=== PATIENT | female | born 1975 | race Hispanic/Latino ===

== ENCOUNTER 2019-03-25 21:21 | Emergency (ER) | payer MEDICAID ==
[2019-03-25] MEDS ORDERED: FAMOTIDINE 20MG TAB 20 MG TAB ONE (22:10)
[2019-03-25] MEDS ORDERED: ONDANSETRON ODT 4 MG TAB ONE (22:11)
== END 2019-03-25 22:21 | disposition home or self-care (01) ==
LOC: EDH 21:21
DX: K21.9 Gastro-esophageal reflux disease without esophagitis (principal); E78.00 Pure hypercholesterolemia, unspecified

== ENCOUNTER 2020-12-15 14:14 | Emergency (ER) | payer MEDICAID, OTHER | END 2020-12-15 15:05 | disposition home or self-care (01) | LOC: EDH 14:14 | DX: B34.9 Viral infection, unspecified (principal); T50.B95A Adverse effect of other viral vaccines, initial encounter; Y92.89 Other specified places as the place of occurrence of the external cause | CPT/HCPCS: 71045 ==

== ENCOUNTER 2021-05-05 22:22 | Emergency (ER) | payer OTHER ==
[2021-05-05 22:27] VITALS: BP 168/73
[2021-05-05] MEDS ORDERED: ONDANSETRON ODT 4MG TAB SL ONE (23:00)
[2021-05-05] MEDS ORDERED: ALBUTEROL 0.083% 2.5 MG/3 ML INH IH ONE ×2 (23:00→23:02)
[2021-05-05] MEDS ORDERED: PREDNISONE 20 MG TABLET PO ONE (23:00)
[2021-05-05] MEDS ORDERED: DiphenhydrAMINE HCL 50 MG/ML VIAL IM ONE (23:00)
[2021-05-06] MEDS ORDERED: ALBU8.5H8 IH (00:33)
[2021-05-06] MEDS ORDERED: PRED20TA3 PO (00:33)
[2021-05-06 01:10] VITALS: BP 154/72
[2021-05-06 01:19] VITALS: BP 143/64
== END 2021-05-06 01:23 | disposition home or self-care (01) ==
LOC: EDH 22:22
DX: Z77.098 Contact with and (suspected) exposure to other hazardous, chiefly nonmedicinal, chemicals (principal); R06.2 Wheezing; R07.89 Other chest pain; R05 Cough; F17.200 Nicotine dependence, unspecified, uncomplicated; Z79.52 Long term (current) use of systemic steroids; Z79.899 Other long term (current) drug therapy
CPT/HCPCS: 71045; 94640; 96372; 99283; J1200